=== PATIENT | female | born 1990 | race Two or more races ===

== ENCOUNTER 2017-06-27 19:19 | Emergency (ER) | payer MEDICAID ==
[~2017-06-27] VITALS: Ht 154.9 cm; Wt 67.1 kg
[2017-06-27 20:00] VITALS: BP 112/77
== END 2017-06-28 | disposition left against medical advice (07) ==
LOC: ER 19:19
DX: R10.31 Right lower quadrant pain (principal); Z53.21 Procedure and treatment not carried out due to patient leaving prior to being seen by health care provider